=== PATIENT | female | born 1960 | race Hispanic/Latino ===

== ENCOUNTER 2023-12-18 10:55 | Observation (INO) | payer BC ==
[2023-12-15 12:37] LABS: BASOPHILS # (AUTO) 0.1 (0.0-0.1); BASOPHILS % 0.7 % (0.0-1.0); EOSINOPHILS # (AUTO) 0.1 (0.0-0.4); EOSINOPHILS % 1.2 % (0.0-6.0); HEMATOCRIT 38.7 % (34.2-44.1); HEMOGLOBIN 11.9 g/dL (12.0-16.0); LYMPHOCYTES # (AUTO) 1.9 (1.0-3.2); MEAN CORPUSCULAR HEMOGLOBIN 26.3 pg (28-32); MEAN CORPUSCULAR HGB CONC 30.7 g/dL (31-35); MEAN CORPUSCULAR VOLUME 85.6 fL (81-99); MONOCYTES # (AUTO) 0.6 (0.2-0.8); MONOCYTES % 7.2 % (4.4-11.3); NEUTROPHILS # (AUTO) 5.4 (2.1-6.9); NEUTROPHILS % 66.7 % (38.7-80.0); PLATELET COUNT 200 x10e3/uL (140-360); RED BLOOD COUNT 4.52 x10e6/uL (3.6-5.1); WHITE BLOOD COUNT 8.04 x10e3/uL (4.8-10.8)
[2023-12-15 12:55] LABS: ANION GAP 14.6 mmol/L (8-16); CALCIUM 9.5 mg/dL (8.4-10.2); CREATININE, SERUM 0.67 mg/dL (0.57-1.11); POTASSIUM 3.6 mmol/L (3.5-5.1)
[~2023-12-18] VITALS: Ht 167.6 cm; Wt 99.5 kg
[~2023-12-18 10:55] MED LIST: AMLODIPINE BESY10 MG PO; CRESTOR10 MG PO; DICLOFENAC SODI75 MG PO; JARDIANCE25 MG PO; LOSARTAN-HCTZ1 EACH PO; NEURONTIN300 MG PO; PIOGLITAZONE-M1 EACH PO; ROPIVACAINE 246.25 MG, EPINEPHRINE HCL 1:1000 1ML 0.5 MG, CLONIDINE HCL 0.08 MG, KETORO... INJ ONE; ULTRAM 50MG50 MG PO; ZETIA10 MG PO
[2023-12-18] MEDS ORDERED: CEFAZOLIN SODIUM 2 GM ONE (11:49)
[2023-12-18] MEDS ORDERED: LACTATED RINGER'S 1,000 ML ONE (11:49)
[2023-12-18] MEDS ORDERED: CELECOXIB 200 MG CAP ONE (11:49)
[2023-12-18] MEDS ORDERED: DEXAMETHASONE SOD PHOS 10 MG/1 ML VIAL ONE (11:49)
[2023-12-18] MEDS ORDERED: GABAPENTIN 300 MG CAP ONE (11:49)
[2023-12-18] MEDS ORDERED: Vancomycin IV 1,000 MG ONE (12:54)
[2023-12-18] MEDS ORDERED: SODIUM CHLORIDE 0.9% 500ML 500 ML ONE (12:54)
[2023-12-18] MEDS ORDERED: TRANEXAMIC ACID 20 ML ONE (12:54)
[2023-12-18] MEDS ORDERED: DOCUSATE SODIUM 100 MG CAP PO PRN (15:00)
[2023-12-18] MEDS ORDERED: ONDANSETRON HCL INJ 2MG/ML 2ML 2 MG/ML VIAL IV PRN (15:00)
[2023-12-18] MEDS ORDERED: HYDROCODONE/APAP 5MG-325MG TAB PO PRN (15:00)
[2023-12-18] MEDS ORDERED: ZOLPIDEM TARTRATE 5 MG TAB PO PRN (15:00)
[2023-12-18] MEDS ORDERED: ACETAMINOPHEN 650 MG SUPP PR PRN (15:00)
[2023-12-18] MEDS ORDERED: DIPHENHYDRAMINE HCL INJ 50 MG/ML VIAL IV PRN (15:00)
[2023-12-18 17:19] VITALS: BP 122/63; PULSE 72; RESP 17; TEMP 97.9; O2SAT 98
[2023-12-18 18:01] VITALS: BP 122/63; PULSE 72; RESP 17; TEMP 97.9; O2SAT 98
[2023-12-18] MEDS: CELECOXIB 100 MG CAP PO SCH (18:34)
[2023-12-18] MEDS: ASPIRIN 325 MG TAB PO SCH (18:35)
[2023-12-18] MEDS: SODIUM CHLORIDE 0.9% 1000ML 1,000 ML IV SCH (18:35)
[2023-12-18 20:00] VITALS: BP 111/56; PULSE 75; RESP 17; TEMP 97.9; O2SAT 98
[2023-12-19 01:46] VITALS: BP 103/54; PULSE 67; RESP 20; TEMP 97.6; O2SAT 98
[2023-12-19] MEDS: SODIUM CHLORIDE 0.9% 1000ML 1,000 ML IV SCH (04:13)
[2023-12-19 05:35] VITALS: BP 120/56; PULSE 66; RESP 19; TEMP 97.1; O2SAT 98
[2023-12-19 06:16] LABS: HEMATOCRIT 34.7 % (34.2-44.1); HEMOGLOBIN 10.6 g/dL (12.0-16.0)
[2023-12-19] MEDS: HYDROCODONE/APAP 7.5MG-325MG 1 EA TAB PO PRN ×2 (07:51→12:14)
[2023-12-19] MEDS: CELECOXIB 100 MG CAP PO SCH (07:51)
[2023-12-19] MEDS: ASPIRIN 325 MG TAB PO SCH (07:52)
[2023-12-19 08:00] VITALS: BP 120/56; PULSE 66; RESP 19; TEMP 97.1; O2SAT 98
[2023-12-19 08:23] VITALS: BP 103/49; PULSE 64; RESP 18; TEMP 97.7; O2SAT 100
[2023-12-19] MEDS ORDERED: GABAPENTIN 300 MG CAP PO SCH (09:00)
[2023-12-19] MEDS ORDERED: EZETIMIBE 10 MG TAB PO SCH (09:00)
[2023-12-19] MEDS ORDERED: ASPIRIN81 MG PO (11:44)
[2023-12-19] MEDS ORDERED: ACETAMINOPHEN 1000 MG/100 ML IV PRN (15:00)
[2023-12-19] MEDS ORDERED: SIMVASTATIN 40 MG TAB PO SCH (21:00)
== END 2023-12-19 12:34 | disposition home health service (06) ==
LOC: OR 10:55 → PACU V 14:50 → MED/SURG2 17:54
PROVIDERS: ADMIT Specialist; ATTEND Specialist
DX: M17.11 Unilateral primary osteoarthritis, right knee (principal); I10 Essential (primary) hypertension; E78.5 Hyperlipidemia, unspecified; E11.9 Type 2 diabetes mellitus without complications; Z79.84 Long term (current) use of oral hypoglycemic drugs; E66.01 Morbid (severe) obesity due to excess calories; Z68.35 Body mass index [BMI] 35.0-35.9, adult; D64.9 Anemia, unspecified; G89.29 Other chronic pain; Z01.810 Encounter for preprocedural cardiovascular examination; Z01.812 Encounter for preprocedural laboratory examination; Z79.899 Other long term (current) drug therapy
CPT/HCPCS: 27447; 36415 ×3; 73560; 80048; 82948; 85014; 85018; 85025; 86850; 86900; 93005; 96361 ×2; 97110; 97116; 97162; 97530 ×2; C1713 ×2; C1776 ×3; G0378 ×2; J0171; J0690 ×2; J1100; J1885; J2795; J3370; J7030 ×2; J7040; J7121

== ENCOUNTER 2024-03-14 17:00 | Outpatient (RCR) | payer BC ==
[~2024-03-14 17:00] MED LIST changes: +ASPIRIN81 MG PO; -ROPIVACAINE 246.25 MG, EPINEPHRINE HCL 1:1000 1ML 0.5 MG, CLONIDINE HCL 0.08 MG, KETORO... INJ ONE
== END 2024-03-19 ==
LOC: PT 17:00
PROVIDERS: ATTEND Family Medicine
DX: Z47.1 Aftercare following joint replacement surgery (principal); Z96.651 Presence of right artificial knee joint